=== PATIENT | female | born 1990 | race Caucasian/White ===

== ENCOUNTER 2020-01-20 13:31 | Emergency (ER) | payer SELFPAY ==
[2020-01-20] MEDS ORDERED: Sodium Chloride 0.9% 2.5 ML Syringe FLUSH PRN (14:00)
[2020-01-20] MEDS ORDERED: Sodium Chloride 0.9% 10 ML SDV IV PRN (14:00)
[2020-01-20] MEDS ORDERED: Ondansetron 4 MG/2 ML SDV IVPUSH ONE (14:00)
[2020-01-20] MEDS ORDERED: fentaNYL 50 MCG/ML SDV IVPUSH ONE ×2 (14:00→16:16)
[2020-01-20] MEDS ORDERED: Sodium Chloride 0.9% 10 ML Syringe FLUSH PRN (14:00)
--- NOTE | 2020-01-20 14:15 | EDM.PDOC ---
ED HPI GENERAL MEDICAL PROBLEM - General Chief Complaint: Abdominal Pain Stated Complaint: LOWER ABDOMEN/BACK PAIN Time Seen by Provider: 01/20/20 13:31 Source of Information: Reports: Patient History Limitations: Reports: No Limitations - History of Present Illness INITIAL COMMENTS - FREE TEXT/NARRATIVE: 29-year-old female past medical history of kidney stones, status post chol ecystectomy, status post bilateral salpingectomy presenting with abdominal pain and nausea. 2-hour history of right lower quadrant abdominal pain, sudden onset, radiating to the right flank in a belt-like pattern, nothing makes it better or worse. 2-day history of nausea without emesis. Also reports several days of urethral discomfort just prior to urinary voiding. 5-day history of nonbloody diarrhea. Denies fever, flank pain, vaginal bleeding or discharge, hematemesis. No recent sick contacts or travel. RLQ Pain Score (Numeric/FACES): 7 - Related Data Allergies Allergy/AdvReac Type Severity Reaction Status Date / Time morphine Allergy Nausea and Verified 01/20/20 13:42 Vomiting Home Meds: Home Meds . [No Known Home Meds] 01/20/20 [History] Past Medical History HEENT History: Reports: None Cardiovascular History: Reports: None Respiratory History: Reports: None Gastrointestinal History: Reports: None Genitourinary History: Reports: None, Renal Calculus CORRECTIONS SERGEANT History: Reports: None Musculoskeletal History: Reports: None Neurological History: Reports: None Psychiatric History: Reports: None Endocrine/Metabolic History: Reports: None Hematologic History: Reports: None Immunologic History: Reports: None Oncologic (Cancer) History: Reports: None Dermatologic History: Reports: None - Infectious Disease History Infectious Disease History: Reports: None - Past Surgical History Head Surgeries/Procedures: Reports: None HEENT Surgical History: Reports: None Cardiovascular Surgical History: Reports: None Respiratory Surgical History: Reports: None GI Surgical History: Reports: Cholecystectomy Female Surgical History: Reports: Section, Other (See Below) Other Female Surgeries/Procedures: bilateral fallopian tubes removed Endocrine Surgical History: Reports: None Neurological Surgical History: Reports: None Musculoskeletal Surgical History: Reports: None Oncologic Surgical History: Reports: None Dermatological Surgical History: Reports: None Social & Family History - Family History Family Medical History: Noncontributory - Tobacco Use Smoking Status *Q: Current Every Day Smoker Years of Tobacco use: 10 Packs/Tins Daily: 0.5 - Recreational Drug Use Recreational Drug Use: No ED ROS GENERAL - Review of Systems Review Of Systems: See Below Constitutional: Denies: Fever, Chills HEENT: Reports: No Symptoms Respiratory: Denies: Shortness of Breath Cardiovascular: Denies: Chest Pain Endocrine: Denies: Fatigue GI/Abdominal: Reports: Abdominal Pain, Diarrhea, Nausea. Denies: Black Stool, Bloody Stool, Distension, Hematemesis, Hematochezia, Mucous in Stool, Vomiting : Reports: Dysuria, Flank Pain. Denies: Discharge, Frequency, Hematuria, Pain, Urgency Musculoskeletal: Denies: Back Pain Skin: Denies: Lesions Neurological: Denies: Headache Psychiatric: Reports: No Symptoms Hematologic/Lymphatic: Reports: No Symptoms Immunologic: Reports: No Symptoms ED EXAM, GI/ABD - Physical Exam Exam: See Below Text/Narrative:: Vital signs reviewed. Nursing notes reviewed. Constitutional: Awake, alert, non-distressed. Head: Normocephalic, atraumatic. Eyes: EOMI, conjunctiva normal, no discharge, no scleral icterus. Ears, Nose, Throat: External ears and nose normal, moist oral mucosa. Cardiovascular: 2+ radial pulse, capillary refill less than 2 seconds. Pulmonary: normal work of breathing, no accessory muscle use. Abdomen/GI: Soft, mild tenderness in the right lower quadrant, nondistended, no guarding or rigidity, no masses. No CVA tenderness bilaterally Musculoskeletal: No deformities. Integumentary: Appropriate color for ethnicity, warm, dry, no pallor or jaundice, no rash. Neurologic: Alert, answering questions appropriately, normal speech, no facial droop, moving all extremities well. Psychiatric: Appropriate mood and affect, normal thought process. Course - Vital Signs Text/Narrative:: 29-year-old female with right lower quadrant bowel pain, dysuria, nausea, diarrhea. Patient hemodynamically stable, afebrile, well-appearing, looks nontoxic. Differential diagnosis includes but is not limited to: Appendicitis, UTI, pyelonephritis, kidney stone, infected stone, intra-abdominal infection, sepsis, colitis, epiploic appendagitis, bowel obstruction, ovarian cyst, ovarian torsion, volvulus, etc. CT abdomen pelvis demonstrated a 4.3 cm right-sided pelvic mass which contained fat. This was thought to be due to a dermoid cyst within the right ovary. CT also demonstrated a 1.8 cm right breast mass within the central right lower breast, I counseled the patient about this finding and the need for outpatient primary care follow-up and likely need for breast ultrasound. Pelvic ultrasound demonstrated a dermoid cyst within the right ovary and 2 small uterine fibroids, otherwise no other abnormalities. Patient was given 2 doses of fentanyl along with 1 dose of IV Zofran. Her nausea and pain improved after these medications. On serial reevaluation's, she remained hemodynamically stable, her abdomen remained soft and minimally tender. She was resting comfortably in between cares. No active vomiting. Etiology of patient's pain is not entirely clear but her negative work-up is reassuring along with her soft abdominal exam and her well appearance. No evidence of infection by urine, no evidence of appendicitis, stone, colitis, bowel obstruction, volvulus, or any other surgical emergency by CT. Pelvic ultrasound study did not suggest ovarian torsion or any other emergent gynecologic pathology. Given her well appearance and negative work-up, she is stable to discharge home with outpatient primary care follow-up. I strictly reiterated the need to follow-up with a primary care physician for further work- up and characterization of the right sided breast mass including likely need for a breast ultrasound and possible need for fine-needle aspiration for further work-up. Patient voiced understanding of this. Plan: Patient is stable to discharge home with outpatient primary care follow- up. Strict emergency department return precautions were provided, patient indicated understanding. All questions were answered prior to departure. Discharged in good condition. Last Recorded V/S: Last Vital Signs Temp 36.1 C 01/20/20 19:10 Pulse 56 L 01/20/20 19:10 Resp 17 01/20/20 19:10 BP 106/47 L 01/20/20 19:10 Pulse Ox 94 L 01/20/20 19:10 - Orders/Labs/Meds Orders: Active Orders 24 hr Category Date Time Status Pulse Oximetry [RC] ASDIRECTED Care 01/20/20 14:00 Active Peripheral IV Insertion Adult [OM.PC] Stat Oth 01/20/20 14:00 Ordered Labs: Laboratory Tests 01/20/20 01/20/20 01/20/20 Range/Units 13:40 13:40 13:40 WBC 8.99 (4.0-11.0) K/uL RBC 4.66 (4.30-5.90) M/uL Hgb 15.0 (12.0-16.0) g/dL Hct 45.1 (36.0-46.0) % MCV 96.8 (80.0-98.0) fL MCH 32.2 H (27.0-32.0) pg MCHC 33.3 (31.0-37.0) g/dL RDW Std Deviation 47.9 (28.0-62.0) fl RDW Coeff of Antionette 13 (11.0-15.0) % Plt Count 313 (150-400) K/uL MPV 9.00 (7.40-12.00) fL Neut % (Auto) 64.0 (48.0-80.0) % Lymph % (Auto) 22.9 (16.0-40.0) % [place] % (Auto) 5.8 (0.0-15.0) % Eos % (Auto) 7.0 (0.0-7.0) % Baso % (Auto) 0.3 (0.0-1.5) % Neut # (Auto) 5.8 H (1.4-5.7) K/uL Lymph # (Auto) 2.1 (0.6-2.4) K/uL [place] # (Auto) 0.5 (0.0-0.8) K/uL Eos # (Auto) 0.6 (0.0-0.7) K/uL Baso # (Auto) 0.0 (0.0-0.1) K/uL Nucleated RBC % 0.0 /100WBC Nucleated RBCs # 0 K/uL Lactate 1.1 (0.20-2.00) mmol/L Sodium (136-145) mmol/L Potassium (3.5-5.1) mmol/L Chloride (98-107) mmol/L Carbon Dioxide (21.0-32.0) mmol/L BUN (7.0-18.0) mg/dL Creatinine (0.6-1.0) mg/dL Est Cr Clr Drug Dosing mL/min Estimated GFR (MDRD) ml/min Glucose (74-106) mg/dL Calcium (8.5-10.1) mg/dL Total Bilirubin (0.2-1.0) mg/dL AST (15-37) IU/L ALT (14-63) IU/L Alkaline Phosphatase (46-116) U/L Total Protein (6.4-8.2) g/dL Albumin (3.4-5.0) g/dL Globulin (2.6-4.0) g/dL Albumin/Globulin Ratio (0.9-1.6) HCG, Qual NEGATIVE (NEG) Urine Color Urine Appearance Urine pH (5.0-8.0) Ur Specific [place] (1.001-1.035) Urine Protein (NEGATIVE) mg/dL Urine Glucose (UA) (NEGATIVE) mg/dL Urine Ketones (NEGATIVE) mg/dL Urine Occult Blood (NEGATIVE) Urine Nitrite (NEGATIVE) Urine Bilirubin (NEGATIVE) Urine Urobilinogen (<2.0) EU/dL Ur Leukocyte Esterase (NEGATIVE) 01/20/20 01/20/20 Range/Units 13:40 14:03 WBC (4.0-11.0) K/uL RBC (4.30-5.90) M/uL Hgb (12.0-16.0) g/dL Hct (36.0-46.0) % MCV (80.0-98.0) fL MCH (27.0-32.0) pg MCHC (31.0-37.0) g/dL RDW Std Deviation (28.0-62.0) fl RDW Coeff of Antionette (11.0-15.0) % Plt Count (150-400) K/uL MPV (7.40-12.00) fL Neut % (Auto) (48.0-80.0) % Lymph % (Auto) (16.0-40.0) % [place] % (Auto) (0.0-15.0) % Eos % (Auto) (0.0-7.0) % Baso % (Auto) (0.0-1.5) % Neut # (Auto) (1.4-5.7) K/uL Lymph # (Auto) (0.6-2.4) K/uL [place] # (Auto) (0.0-0.8) K/uL Eos # (Auto) (0.0-0.7) K/uL Baso # (Auto) (0.0-0.1) K/uL Nucleated RBC % /100WBC Nucleated RBCs # K/uL Lactate (0.20-2.00) mmol/L Sodium 137 (136-145) mmol/L Potassium 4.2 (3.5-5.1) mmol/L Chloride 101 (98-107) mmol/L Carbon Dioxide 26.1 (21.0-32.0) mmol/L BUN 7 (7.0-18.0) mg/dL Creatinine 0.8 (0.6-1.0) mg/dL Est Cr Clr Drug Dosing 82.80 mL/min Estimated GFR (MDRD) > 60.0 ml/min Glucose 102 (74-106) mg/dL Calcium 8.8 (8.5-10.1) mg/dL Total Bilirubin 0.4 (0.2-1.0) mg/dL AST 15 (15-37) IU/L ALT 16 (14-63) IU/L Alkaline Phosphatase 64 (46-116) U/L Total Protein 7.0 (6.4-8.2) g/dL Albumin 4.0 (3.4-5.0) g/dL Globulin 3.0 (2.6-4.0) g/dL Albumin/Globulin Ratio 1.3 (0.9-1.6) HCG, Qual (NEG) Urine Color YELLOW Urine Appearance CLEAR Urine pH 7.0 (5.0-8.0) Ur Specific [place] 1.010 (1.001-1.035) Urine Protein NEGATIVE (NEGATIVE) mg/dL Urine Glucose (UA) NEGATIVE (NEGATIVE) mg/dL Urine Ketones NEGATIVE (NEGATIVE) mg/dL Urine Occult Blood NEGATIVE (NEGATIVE) Urine Nitrite NEGATIVE (NEGATIVE) Urine Bilirubin NEGATIVE (NEGATIVE) Urine Urobilinogen 0.2 (<2.0) EU/dL Ur Leukocyte Esterase NEGATIVE (NEGATIVE) Meds: Medications Discontinued Medications Generic Name Dose Route Start Last Admin Trade Name Freq PRN Reason Stop Dose Admin Fentanyl 50 mcg 01/20/20 14:00 01/20/20 14:17 Fentanyl IVPUSH 01/20/20 14:01 50 mcg ONETIME ONE Administration Fentanyl 50 mcg 01/20/20 16:16 01/20/20 17:04 Fentanyl IVPUSH 01/20/20 16:17 50 mcg ONETIME ONE Administration Iopamidol 100 ml 01/20/20 14:54 01/20/20 14:55 Isovue-370 (76%) IVPUSH 01/20/20 14:55 100 ml ONETIME ONE Administration Ondansetron HCl 4 mg 01/20/20 14:00 01/20/20 14:17 Zofran IVPUSH 01/20/20 14:01 4 mg ONETIME ONE Administration Sodium Chloride 10 ml 01/20/20 14:00 Saline Flush FLUSH ASDIRECTED PRN Keep Vein Open Sodium Chloride 2.5 ml 01/20/20 14:00 Saline Flush FLUSH ASDIRECTED PRN Keep Vein Open Sodium Chloride 10 ml 01/20/20 14:00 Normal Saline IV ASDIRECTED PRN IV Use Departure - Departure Time of Disposition: 19:00 Disposition: Home, Self-Care 01 Condition: Good Clinical Impression: Right lower quadrant abdominal pain, Breast mass, right - Discharge Information *PRESCRIPTION DRUG MONITORING PROGRAM REVIEWED*: No *COPY OF PRESCRIPTION DRUG MONITORING REPORT IN PATIENT JOAQUIN: No Instructions: Abdominal Pain, Adult, [id number], Pain Without a Known Cause, Breast Self-Awareness, [id number] Referrals: [facility] - [facility] Practice [Provider Group] - 3 Days (For follow-up of pain.) Forms: ED Department Discharge Additional Instructions: Thank you for choosing the [facility] emergency department in [place] for your medical needs today. It was a pleasure caring for you. You were seen in the emergency department for abdominal pain. Your CT scan, ultrasound, and laboratory work-up was reassuring. I recommend following up with a primary doctor in the next few days for evaluation. I recommend [id number] extra strength acetaminophen (1000 mg every 6 hours) and ibuprofen (400 mg every 6 hours) to help treat your pain. You are noted to have a breast mass on your CT scan. There is concern that this could potentially be cancer although this is less likely in a woman of your age. It is very important you follow-up with a primary medical doctor in the next 1 to 2 weeks for reevaluation. You will likely need to have a specialized breast ultrasound and may need to undergo fine-needle aspiration. Please return the emergency department immediately if your symptoms worsen or if you feel worse. The following information is given to patients seen in the emergency department who are being discharged. This information is to outline your options for follow-up care. We provide all patients seen in our emergency department with a follow-up referral. The need for follow-up, as well as the timing and circumstances, are variable depending upon the specifics of your emergency department visit. If you don't have a primary care physician on staff, we will provide you with a referral. We always advise you to contact your personal physician following an emergency department visit to inform them of the circumstance of the visit and for follow-up with them and/or the need for any referrals to a consulting specialist. The emergency department will also refer you to a specialist when appropriate. This referral assures that you have the opportunity for follow-up care with a specialist. All of these measure are taken in an effort to provide you with optimal care, which includes your follow-up. Under all circumstances we always encourage you to contact your private physician who remains a resource for coordinating your care. When calling for follow-up care, please make the office aware that this follow-up is from your recent emergency room visit. If for any reason you are refused follow-up, please contact the [facility] Emergency Department at and asked to speak to the emergency department charge nurse. If you do not have a primary care physician that is caring for you, you can contact these clinics below to set up an appointment to establish care: [facility] - Primary Care [address] [place] [id number] [facility] [address] [place] [id number] Sepsis Event Note (ED) - Evaluation Sepsis Screening Result: No Definite Risk - My Orders Last 24 Hours: My Active Orders 01/20/20 14:00 Pulse Oximetry [RC] ASDIRECTED Peripheral IV Insertion Adult [OM.PC] Stat - Assessment/Plan Last 24 Hours: My Active Orders 01/20/20 14:00 Pulse Oximetry [RC] ASDIRECTED Peripheral IV Insertion Adult [OM.PC] Stat
[2020-01-20 14:18] LABS: BLOOD UREA NITROGEN,BUN 7 mg/dL (7.0-18.0); CARBON DIOXIDE,CO2 26.1 mmol/L (21.0-32.0); CHLORIDE,CL 101 mmol/L (98-107); GLUCOSE RANDOM 102 mg/dL (74-106); POTASSIUM,K 4.2 mmol/L (3.5-5.1); SODIUM,NA 137 mmol/L (136-145)
[2020-01-20] MEDS ORDERED: Iopamidol 755 Mg/ML 100 ML Bottle IVPUSH ONE (14:54)
--- NOTE | 2020-01-20 15:25 | CT ---
CT abdomen and pelvis Technique: Multiple axial sections were obtained from above the dome of the diaphragm inferiorly through the pubic symphysis. Intravenous contrast was utilized. No oral contrast has been given. Comparison: No prior abdominal imaging is available. Findings: Small subpleural cyst noted within the right lung base. Nothing acute is otherwise seen within the visualized lung bases. Liver shows no focal parenchymal abnormality. Right breast mass is seen within the lower mid breast measuring 1.8 cm. This does not appear as a simple cyst. Ultrasound will be recommended. Spleen appears within normal limits. Adrenal glands show no nodule. Kidneys show symmetric contrast enhancement with no hydronephrosis or mass. Pancreas is within normal limits. Surgical clips seen from prior cholecystectomy. Aorta shows no aneurysm. No retroperitoneal adenopathy or mesenteric abnormalities are seen. Appendix is seen and is normal in size. Fatty containing mass is noted within the right side of the pelvis which measures 4.3 cm in size which is felt compatible with a dermoid cyst. No additional pelvic abnormality is seen. No free fluid or inflammatory change is appreciated. Bone window settings were reviewed. No acute osseous finding is seen. Impression: 1. 4.3 cm right-sided pelvic mass which contains fat. This is most likely due to a dermoid cyst within the right ovary. 2. 1.8 cm right breast mass within the central lower right breast. Ultrasound is strongly recommended as this does not appear to be a simple cyst. 3. Subpleural cyst within the right lung base. 4. No additional abnormality is appreciated on CT study of the abdomen and pelvis. Diagnostic code #9 This report was dictated in MDT
--- NOTE | 2020-01-20 18:15 | US ---
Pelvic ultrasound: Multiple real-time images were obtained transabdominally and transvaginally. Comparison: Prior CT abdomen and pelvis study performed earlier on the same day (2:51 PM). Slightly echogenic mass is noted within the right ovary with additional hypoechoic areas. Findings are felt compatible with dermoid cyst. Measurements as noted on previous CT exam of 4.3 cm. Uterus shows 2 small fibroids measuring 2.3 cm and 1.7 cm. Uterus is anteverted. Endometrial thickness is normal at 1.1 cm. Left ovary appears within normal limits. No free fluid is seen. Impression: 1. Dermoid cyst within the right ovary. Measurements as noted on previous CT exam of 4.3 cm. 2. 2 small uterine fibroids. 3. No additional abnormality is identified on pelvic ultrasound exam. Diagnostic code #3 This report was dictated in MDT
== END 2020-01-20 19:10 | disposition home or self-care (01) ==
LOC: MW.ED 13:31
DX: R10.31 Right lower quadrant pain (principal); N63.10 Unspecified lump in the right breast, unspecified quadrant; F17.210 Nicotine dependence, cigarettes, uncomplicated; Z88.5 Allergy status to narcotic agent; Z90.49 Acquired absence of other specified parts of digestive tract; Z98.890 Other specified postprocedural states; Z90.722 Acquired absence of ovaries, bilateral
CPT/HCPCS: 36415; 74177; 76830; 80053; 81003; 83605; 84703; 85025; 96374; 96375; 96376; 99284; J2405; J3010; Q9967

== ENCOUNTER 2020-02-01 08:37 | Day surgery (SDC) | payer SELFPAY ==
[2020-01-31 11:05] LABS: BLOOD UREA NITROGEN,BUN 15 mg/dL (7.0-18.0); CHLORIDE,CL 105 mmol/L (98-107); GLUCOSE RANDOM 99 mg/dL (74-106); SODIUM,NA 141 mmol/L (136-145)
[~2020-02-01 08:37] MED LIST: Lactated Ringers 1,000 ML IV SCH; Ondansetron 4 MG/2 ML SDV ONE; Sodium Chloride 0.9% 10 ML SDV IV PRN; Sodium Chloride 0.9% 10 ML Syringe FLUSH PRN; Sodium Chloride 0.9% 2.5 ML Syringe FLUSH PRN
--- NOTE | 2020-02-01 10:02 | PCM.PREANE ---
Preanesthetic Assessment - Anesthesia/Transfusion/Family Hx Anesthesia History: Prior Anesthesia Without Reaction Family History of Anesthesia Reaction: No Transfusion History: No Prior Transfusion(s) - Review of Systems General: No Symptoms Pulmonary: No Symptoms Cardiovascular: No Symptoms Gastrointestinal: No Symptoms Neurological: No Symptoms Other: Reports: None - Physical Assessment NPO Status Date: 01/31/20 Vital Signs: Last Vital Signs Temp 97.2 F 02/01/20 09:38 Pulse 65 02/01/20 09:38 Resp 16 02/01/20 09:38 BP 120/66 02/01/20 09:38 Pulse Ox 97 02/01/20 09:38 Height: 5 ft 4 in Weight: 92.079 kg ASA Class: 2 Mental Status: Alert & Oriented x3 Airway Class: Mallampati = 2 Dentition: Reports: Normal Dentition ROM/Head Extension: Full Lungs: Clear to Auscultation, Normal Respiratory Effort Cardiovascular: Regular Rate, Regular Rhythm - Lab Values: Laboratory Last Values WBC 10.09 K/uL (4.0-11.0) 01/31/20 10:30 RBC 4.58 M/uL (4.30-5.90) 01/31/20 10:30 Hgb 14.7 g/dL (12.0-16.0) 01/31/20 10:30 Hct 44.0 % (36.0-46.0) 01/31/20 10:30 MCV 96.1 fL (80.0-98.0) 01/31/20 10:30 MCH 32.1 pg (27.0-32.0) H 01/31/20 10:30 MCHC 33.4 g/dL (31.0-37.0) 01/31/20 10:30 RDW Std Deviation 48.1 fl (28.0-62.0) 01/31/20 10:30 RDW Coeff of Antionette 14 % (11.0-15.0) 01/31/20 10:30 Plt Count 310 K/uL (150-400) 01/31/20 10:30 MPV 9.00 fL (7.40-12.00) 01/31/20 10:30 Nucleated RBC % 0.0 /100WBC 01/31/20 10:30 Nucleated RBCs # 0 K/uL 01/31/20 10:30 Sodium 141 mmol/L (136-145) 01/31/20 10:30 Potassium 4.0 mmol/L (3.5-5.1) 01/31/20 10:30 Chloride 105 mmol/L (98-107) 01/31/20 10:30 Carbon Dioxide 23.0 mmol/L (21.0-32.0) 01/31/20 10:30 BUN 15 mg/dL (7.0-18.0) 01/31/20 10:30 Creatinine 0.6 mg/dL (0.6-1.0) 01/31/20 10:30 Est Cr Clr Drug Dosing 120.54 mL/min 01/31/20 10:30 Estimated GFR (MDRD) > 60.0 ml/min 01/31/20 10:30 Glucose 99 mg/dL (74-106) 01/31/20 10:30 Calcium 8.5 mg/dL (8.5-10.1) 01/31/20 10:30 HCG, Qual NEGATIVE (NEG) 01/31/20 10:30 Blood Type A POSITIVE 01/31/20 10:30 Antibody Screen NEGATIVE 01/31/20 10:30 - Allergies Allergies/Adverse Reactions: Allergies Allergy/AdvReac Type Severity Reaction Status Date / Time morphine Allergy Nausea and Verified 02/01/20 09:31 Vomiting pineapple Allergy "makes my Verified 02/01/20 09:31 tongue & throat feel numb" - Blood Blood Available: No - Anesthesia Plan Pre-Op Medication Ordered: None - Acknowledgements Anesthesia Type Planned: General Anesthesia Pt an Appropriate Candidate for the Planned Anesthesia: Yes Alternatives and Risks of Anesthesia Discussed w Pt/Guardian: Yes Pt/Guardian Understands and Agrees with Anesthesia Plan: Yes PreAnesthesia Questionnaire HEENT History: Reports: None Cardiovascular History: Reports: None Respiratory History: Reports: None Gastrointestinal History: Reports: None Genitourinary History: Reports: None, Renal Calculus WELLNESS AMBASSADOR History: Reports: Ectopic , Musculoskeletal History: Reports: None Neurological History: Reports: Concussion, Headaches, Chronic Psychiatric History: Reports: None Endocrine/Metabolic History: Reports: Obesity/BMI 30+ Hematologic History: Reports: None Immunologic History: Reports: None Oncologic (Cancer) History: Reports: None Dermatologic History: Reports: None - Infectious Disease History Infectious Disease History: Reports: None - Past Surgical History Head Surgeries/Procedures: Reports: None HEENT Surgical History: Reports: None Cardiovascular Surgical History: Reports: None Respiratory Surgical History: Reports: None GI Surgical History: Reports: Cholecystectomy Female Surgical History: Reports: Section, Salpingo-Oophorectomy, O ther (See Below) Other Female Surgeries/Procedures: laparoscopy with salpingectomy for ectopic , C/Section with salpingectomy Endocrine Surgical History: Reports: None Neurological Surgical History: Reports: None Musculoskeletal Surgical History: Reports: None Oncologic Surgical History: Reports: None Dermatological Surgical History: Reports: None - SUBSTANCE USE Smoking Status *Q: Current Every Day Smoker Tobacco Use Within Last Twelve Months: Cigarettes - HOME MEDS Home Medications: Home Meds Acetaminophen [Tylenol Extra Strength] 2 tab PO ASDIRECTED PRN 01/29/20 [History] Ibuprofen 800 mg PO ASDIRECTED PRN 01/29/20 [History] Multivitamin [Multi-Vitamin Daily] 1 each PO DAILY 02/01/20 [History] - CURRENT (IN HOUSE) MEDS Current Meds: Current Medications Lactated Ringer's (Ringers, Lactated) 1,000 mls @ 125 mls/hr IV ASDIRECTED LENORE Last Admin: 02/01/20 09:30 Dose: 125 mls/hr Documented by: Sodium Chloride (Saline Flush) 10 ml FLUSH ASDIRECTED PRN PRN Reason: Keep Vein Open Sodium Chloride (Saline Flush) 2.5 ml FLUSH ASDIRECTED PRN PRN Reason: Keep Vein Open Sodium Chloride (Normal Saline) 10 ml IV ASDIRECTED PRN PRN Reason: IV Use Discontinued Medications Ondansetron HCl (Zofran) Confirm Administered Dose 4 mg .ROUTE .STK-MED ONE Stop: 02/01/20 08:36
[2020-02-01] MEDS ORDERED: Atropine 0.1 MG/ML 10 ML Syringe IVPUSH PRN ×2 (10:50)
[2020-02-01] MEDS ORDERED: Naloxone 0.4 MG/ML Syringe IVPUSH PRN (10:50)
[2020-02-01] MEDS ORDERED: 50% Dextrose in Water 50 ML Syringe IVPUSH PRN (10:50)
[2020-02-01] MEDS ORDERED: EPINEPHrine 1:10,000 1 MG/10 ML Syringe IVPUSH PRN (10:50)
[2020-02-01] MEDS ORDERED: Albuterol 0.083% 2.5 MG/3 ML Neb Soln NEB PRN (10:50)
[2020-02-01] MEDS ORDERED: fentaNYL 250 MCG/5 ML SDV ONE (10:55)
[2020-02-01] MEDS ORDERED: Midazolam 1 MG/ML 2 ML SDV ONE (10:55)
[2020-02-01] MEDS ORDERED: Propofol 200 MG/20 ML SDV ONE (10:55)
[2020-02-01] MEDS ORDERED: Dexamethasone 4 MG/ML 5 ML MDV ONE (10:57)
[2020-02-01] MEDS ORDERED: Lidocaine 2% 5 ML SDV ONE (10:57)
[2020-02-01] MEDS ORDERED: Rocuronium Bromide 50 MG/5 ML Syringe ONE (11:27)
[2020-02-01] MEDS ORDERED: Glycopyrrolate 0.2 MG/ML SDV ONE (12:07)
[2020-02-01] MEDS ORDERED: fentaNYL 100 MCG/2 ML SDV ONE (12:16)
[2020-02-01] MEDS ORDERED: diphenhydrAMINE 50 MG/ML SDV ONE (12:16)
--- NOTE | 2020-02-01 12:20 | PCM.DCSUM1 ---
Discharge Summary - Hospital Course Diagnosis: Stroke: No - Discharge Data Discharge Date: 02/01/20 Discharge Disposition: Home, Self-Care 01 Condition: Good - Referral to Home Health Primary Care Physician: Rodolfo Harris MD - Patient Summary/Data Operative Procedure(s) Performed: Laproscopic RLazaroSOLazaro - Patient Instructions Diet: Usual Diet as Tolerated Driving: Do Not Drive Showering/Bathing: May Shower - Discharge Plan Home Medications: Home Meds Acetaminophen [Tylenol Extra Strength] 2 tab PO ASDIRECTED PRN 01/29/20 [History] Ibuprofen 800 mg PO ASDIRECTED PRN 01/29/20 [History] Multivitamin [Multi-Vitamin Daily] 1 each PO DAILY 02/01/20 [History] - Discharge Summary/Plan Comment DC Time >30 min.: Yes - General Info Date of Service: 02/01/20 Functional Status: Reports: Pain Controlled - Review of Systems General: Reports: No Symptoms HEENT: Reports: No Symptoms Pulmonary: Reports: No Symptoms Cardiovascular: Reports: No Symptoms Gastrointestinal: Reports: No Symptoms Genitourinary: Reports: No Symptoms Musculoskeletal: Reports: No Symptoms Skin: Reports: No Symptoms Neurological: Reports: No Symptoms Psychiatric: Reports: No Symptoms - Patient Data Vitals - Most Recent: Last Vital Signs Temp 36.2 C 02/01/20 09:38 Pulse 65 02/01/20 09:38 Resp 16 02/01/20 09:38 BP 120/66 02/01/20 09:38 Pulse Ox 97 02/01/20 09:38 Weight - Most Recent: 92.079 kg I&O - Last 24 hours: Intake & Output 01/31/20 02/01/20 02/01/20 22:59 06:59 14:59 Output Total 50 Balance -50 Lab Results - Last 24 hrs: Laboratory Results - last 24 hr 01/31/20 Range/Units 10:30 Blood Type A POSITIVE Antibody Screen NEGATIVE Med Orders - Current: Current Medications Albuterol (Proventil Neb Soln) 2.5 mg NEB ONETIME PRN PRN Reason: Wheezing Atropine Sulfate (Atropine 0.1 Mg/Ml) 0.5 mg IVPUSH ASDIRECTED PRN PRN Reason: Hypo-perfusion Atropine Sulfate (Atropine 0.1 Mg/Ml) 1 mg IVPUSH ASDIRECTED PRN PRN Reason: Hypo-Perfusion Dextrose/Water (Dextrose 50% In Water) 50 ml IVPUSH ASDIRECTED PRN PRN Reason: Hypoglycemia Epinephrine HCl (Epinephrine 1:10,000) 1 mg IVPUSH ASDIRECTED PRN PRN Reason: ACLS Guidelines Fentanyl (Sublimaze) 50 - 100 mcg IVPUSH Q5M PRN PRN Reason: Pain Lactated Ringer's (Ringers, Lactated) 1,000 mls @ 125 mls/hr IV ASDIRECTED LENORE Last Admin: 02/01/20 09:30 Dose: 125 mls/hr Documented by: Naloxone HCl (Narcan) 0.1 mg IVPUSH ASDIRECTED PRN PRN Reason: Respiratory Depression Sodium Chloride (Saline Flush) 10 ml FLUSH ASDIRECTED PRN PRN Reason: Keep Vein Open Sodium Chloride (Saline Flush) 2.5 ml FLUSH ASDIRECTED PRN PRN Reason: Keep Vein Open Sodium Chloride (Normal Saline) 10 ml IV ASDIRECTED PRN PRN Reason: IV Use Discontinued Medications Dexamethasone (Dexamethasone) Confirm Administered Dose 20 mg .ROUTE .STK-MED ONE Stop: 02/01/20 10:58 Diphenhydramine HCl (Benadryl) Confirm Administered Dose 50 mg .ROUTE .STK-MED ONE Stop: 02/01/20 12:17 Fentanyl (Sublimaze) Confirm Administered Dose 250 mcg .ROUTE .STK-MED ONE Stop: 02/01/20 10:56 Fentanyl (Sublimaze) Confirm Administered Dose 100 mcg .ROUTE .STK-MED ONE Stop: 02/01/20 12:17 Glycopyrrolate (Robinul) Confirm Administered Dose 0.4 mg .ROUTE .STK-MED ONE Stop: 02/01/20 12:08 Lidocaine (Xylocaine-Mpf 2%) Confirm Administered Dose 5 ml .ROUTE .STK-MED ONE Stop: 02/01/20 10:58 Midazolam HCl (Versed 1 Mg/Ml) Confirm Administered Dose 2 mg .ROUTE .STK-MED ONE Stop: 02/01/20 10:56 Ondansetron HCl (Zofran) Confirm Administered Dose 4 mg .ROUTE .STK-MED ONE Stop: 02/01/20 08:36 Propofol (Diprivan 20 Ml) Confirm Administered Dose 200 mg .ROUTE .STK-MED ONE Stop: 02/01/20 10:56 Rocuronium Benedict (Rocuronium Benedict) Confirm Administered Dose 50 mg .ROUTE .K-MED ONE Stop: 02/01/20 11:28 - Exam General: Reports: Alert, Oriented HEENT: Reports: Pupils Equal, Pupils Reactive, EOMI, Mucous Membr. Moist/[place]ck: Reports: Supple Lungs: Reports: Clear to Auscultation, Normal Respiratory Effort Cardiovascular: Reports: Regular Rate, Regular Rhythm GI/Abdominal Exam: Normal Bowel Sounds, Soft, Non-Tender, No Organomegaly, No Distention, No Abnormal Bruit, No Mass, Pelvis Stable (Female) Exam: Normal External Exam, Normal Speculum Exam, Normal Bimanual Exam Rectal (Female) Exam: Normal Exam, Normal Rectal Tone Back Exam: Reports: Normal Inspection, Full Range of Motion Extremities: Normal Inspection, Normal Range of Motion, Non-Tender, No Pedal Edema, Normal Capillary Refill Skin: Reports: Warm, Dry, Intact Wound/Incisions: Reports: Healing Well Neurological: Reports: No New Focal Deficit Psy/Mental Status: Reports: Alert, Normal Affect, Normal Mood
--- NOTE | 2020-02-01 12:20 | PCM.OPNOTE ---
- General Post-Op/Procedure Note Date of Surgery/Procedure: 02/01/20 Operative Procedure(s): Laproscopic R.SO. Pre Op Diagnosis: R.dermoid Cyst. Post-Op Diagnosis: Same Anesthesia Technique: General ET Tube Primary Surgeon: Rodolfo Harris EBL in mLs: 50 Complications: None Condition: Good Free Text/Narrative:: Intake & Output 01/31/20 02/01/20 02/01/20 22:59 06:59 14:59 Output Total 50 Balance -50
[2020-02-01] MEDS ORDERED: Ketorolac 30 MG/ML SDV ONE (12:22)
[2020-02-01] MEDS ORDERED: Octyl 2-Cyanoacrylate 1 Tube ONE (12:26)
[2020-02-01] MEDS: fentaNYL 100 MCG/2 ML SDV IVPUSH PRN ×2 (12:45→12:52)
--- NOTE | 2020-02-01 13:01 | PCM.POSTAN ---
POST ANESTHESIA ASSESSMENT - MENTAL STATUS Mental Status: Alert, Oriented - VITAL SIGNS Vital Signs: Last Vital Signs Temp 98.4 F 02/01/20 12:18 Pulse 46 L 02/01/20 12:58 Resp 16 02/01/20 12:58 BP 107/56 L 02/01/20 12:58 Pulse Ox 94 L 02/01/20 12:58 - RESPIRATORY Respiratory Status: Respiratory Rate WNL, Airway Patent, O2 Saturation Stable - CARDIOVASCULAR CV Status: Pulse Rate WNL, Blood Pressure Stable - GASTROINTESTINAL GI Status: No Symptoms - PAIN Pain Score: 0 - POST OP HYDRATION Hydration Status: Adequate & Stable
[2020-02-01] MEDS ORDERED: Acetaminophen 1,000 MG in Premix Bag 1 BAG IV ONE (13:12)
--- NOTE | 2020-02-01 14:08 | PCM48HPAN ---
Post Anesthesia Note - EVALUATION WITHIN 48HRS OF ANESTHETIC Vital Signs in Normal Range: Yes Patient Participated in Evaluation: Yes Respiratory Function Stable: Yes Airway Patent: Yes Cardiovascular Function Stable: Yes Hydration Status Stable: Yes Pain Control Satisfactory: Yes Nausea and Vomiting Control Satisfactory: Yes Mental Status Recovered: Yes Vital Signs: Last Vital Signs Temp 98.4 F 02/01/20 12:18 Pulse 53 L 02/01/20 13:02 Resp 16 02/01/20 13:02 BP 111/57 L 02/01/20 13:02 Pulse Ox 96 02/01/20 13:02
--- NOTE | 2020-02-01 15:04 | OR ---
SURGEON: Rodolfo Harris MD DATE OF PROCEDURE: 02/01/2020 PREOPERATIVE DIAGNOSIS: Right dermoid cyst. POSTOPERATIVE DIAGNOSIS: Right dermoid cyst. OPERATIONS PERFORMED: Multiple-puncture diagnostic laparoscopy, right salpingo-oophorectomy. PRIMARY SURGEON: Rodolfo Harris MD CATH LAB NURSE: RODY carcamo. ANESTHESIA: General endotracheal intubation, Dave Nicolas. INDICATIONS FOR SURGERY: This patient had a right dermoid cyst measuring 5 cm. She was seen in the emergency room with a torsion of that cyst, and the patient admitted with the possibility of either removing the cyst or possibility of removing the right ovary. PROCEDURE IN DETAIL: The patient was brought to the OR, properly identified, and after adequate level of anesthesia, the patient was placed in lithotomy position, prepped and draped in sterile fashion as usual. With an access to the abdomen and the vagina, straight catheter was used to empty the bladder. Hulka manipulator placed in the uterus for manipulation. The operation shifted abdominally. Stab wound done beneath the umbilicus. The Veress needle was placed in the peritoneal cavity and that cavity insufflated with 3.5 L of carbon dioxide, and then utilizing the Visiport technique, 5 mm trocar with scope was inserted infraumbilically. A 10/12 placed in the left iliac fossa and 5 mm trocar in the right iliac fossa. The operation started by identifying the pelvis and the cyst. The cyst was on the right ovary, it was encompassing the entire ovary. It was felt that it was not possibly , the cyst from the ovary, so a decision was made to do right salpingo-oophorectomy and that started by using the Luciano Harmonic scalpel. The superior pedicle was coagulated and transected and then the ovarian ligament was coagulated and transected and the rest of the pedicle was coagulated and transected detaching the right tube and ovary from its blood supply and attachment. Once was that done, we placed the right tube and ovary in the Endobag and it was removed laparoscopically. Then after that thorough irrigation of the pelvis was done, showed no oozing, no bleeding. The ureter was completely away from harm's way. Then, at this time, the procedure ended. The instrument and hardware retrieved from the abdomen and the vagina. The multiple laparoscopic incisions were closed in layer. Instrument and sponge count was correct. The patient tolerated the procedure well and went to recovery room in stable general condition. RONIT / KRISTINA /[id number]
== END 2020-02-01 14:40 | disposition home or self-care (01) ==
LOC: MW.SDS 08:37
PROVIDERS: ATTEND Obstetrics & Gynecology
DX: D27.0 Benign neoplasm of right ovary (principal); N83.511 Torsion of right ovary and ovarian pedicle; E66.9 Obesity, unspecified; F17.210 Nicotine dependence, cigarettes, uncomplicated; Z88.5 Allergy status to narcotic agent; Z68.34 Body mass index [BMI] 34.0-34.9, adult
CPT/HCPCS: 36415; 58661; 80048; 84703; 85027; 86850; 86900; 86901; A9270; J0131; J1100; J1200; J1885; J2001; J2250; J2405; J2704; J3010; J3490; J7120